=== PATIENT | male | born 1945 | race Caucasian/White ===

== ENCOUNTER 2025-02-23 13:09 | Emergency (ER) | payer MEDICARE ==
[2025-02-23 13:52] VITALS: O2SAT 100
[2025-02-23 13:57] LABS: BASO # 0.0 10^3/uL (0.0-0.2); BASO % 0.2 % (0.0-1.0); EOS # 0.3 10^3/uL (0.0-0.5); EOS % 2.6 % (0.0-3.0); LYMPH # 1.0 10^3/uL (1.5-5.0); LYMPH % 7.8 % (24.0-44.0); MONO # 0.8 10^3/uL (0.0-0.8); MONO % 6.1 % (2.0-8.0); NEUTROPHILS # 10.4 10^3/uL (1.5-8.5); NEUTROPHILS % 82.9 % (36.0-66.0); PLATELET COUNT, AUTOMATED 224 10^3/uL (150-450)
[2025-02-23] MEDS ORDERED: VITA200012 PO (14:29)
[2025-02-23] MEDS ORDERED: ZOLO50TA PO (14:29)
[2025-02-23] MEDS ORDERED: IPRA6SP NARES (14:29)
[2025-02-23] MEDS ORDERED: NAPR220C14 PO (14:29)
[2025-02-23] MEDS ORDERED: AZIL1TAB PO (14:29)
[2025-02-23] MEDS ORDERED: MIRT1TAB PO (14:29)
[2025-02-23] MEDS ORDERED: FINA1TAB PO (14:29)
[2025-02-23] MEDS ORDERED: VITA-148 PO (14:29)
[2025-02-23] MEDS ORDERED: TROS20TA3 PO (14:29)
[2025-02-23] MEDS ORDERED: OMEGCAP4 PO (14:29)
[2025-02-23] MEDS ORDERED: PANT40TA29 PO (14:29)
[2025-02-23] MEDS ORDERED: CARB25TA9 PO (14:29)
[2025-02-23] MEDS ORDERED: ROPI4TAB36 PO (14:29)
[2025-02-23 14:39] LABS: CALCIUM LEVEL 8.0 MG/DL (8.3-10.6); CARBON DIOXIDE LEVEL 24.0 MMOL/L (20-31); CHLORIDE LEVEL 108.0 MMOL/L (98-107); CREATININE FOR GFR 0.95 MG/DL (0.70-1.30); GLOMERULAR FILTRATION RATE 81.4 (>42); MAGNESIUM LEVEL 1.8 MG/DL (1.8-2.4); POTASSIUM SERUM 4.6 MMOL/L (3.5-5.1); SODIUM LEVEL 144.0 MMOL/L (136-145)
[2025-02-23] MEDS: NS 500 ML IV ONE (17:39)
[2025-02-23 17:45] VITALS: BP 140/80; TEMP 97.5
== END 2025-02-23 18:20 | disposition home or self-care (01) ==
LOC: M ED 13:09 → EDBD 13:09 → M ED 18:20
DX: I95.1 Orthostatic hypotension (principal); G20.C Parkinsonism, unspecified; K21.9 Gastro-esophageal reflux disease without esophagitis; F41.9 Anxiety disorder, unspecified; F32.A Depression, unspecified; N40.0 Benign prostatic hyperplasia without lower urinary tract symptoms